=== PATIENT | female | born 1925 | race Caucasian/White ===

== ENCOUNTER 2016-11-25 19:29 | Emergency (ER) | payer MEDICARE ==
[2016-11-25 13:59] LABS: BASOPHILS 0.3 %; BASOPHILS ABSOLUTE 0.02 10/3/uL (0.0-0.16); EOSINOPHILS 0.3 %; EOSINOPHILS ABSOLUTE 0.02 10/3/uL (0.0-0.53); HEMATOCRIT 33.7 % (36.0-48.0); HEMOGLOBIN 11.7 g/dL (12.0-16.0); IMMATURE GRANULOCYTES 0.6 %; IMMATURE GRANULOCYTES ABSOLUTE 0.04 10/3/uL (0.0-0.11); LYMPHOCYTES 9.1 %; LYMPHOCYTES ABSOLUTE 0.61 10/3/uL (0.67-4.30); MEAN CORPUS HGB CONC 34.7 g/dL (32.0-36.0); MEAN CORPUSCULAR HEMOGLOB 28.5 pg (26.0-34.0); MEAN CORPUSCULAR VOLUME 82.2 fL (80-100); MEAN PLATELET VOLUME 8.5 fL (9.2-13.0); MONOCYTES 5.7 %; MONOCYTES ABSOLUTE 0.38 10/3/uL (0.21-1.20); NEUTROPHILS ABSOLUTE 5.62 10/3/uL (2.02-8.40); PLATELET COUNT 202 10/3/uL (150-400); RBC DISTRIBUTION WIDTH 17.1 % (12.0-16.0)
[2016-11-25 14:00] LABS: ER CBC TAT 0 Hrs 05 Mins; MANUAL DIFF NO %; WHITE BLOOD CELLS 6.7 10/3/uL (4.5-10.5)
[2016-11-25 14:14] LABS: ALKALINE PHOSPHATASE 74 U/L (45-117); BUN (BLOOD UREA NITROGEN) 19 MG/DL (6-23); CALCIUM, SERUM 9.1 MG/DL (8.5-10.4); CHLORIDE, SERUM 98 MMOL/L (96-112); CO2 (CARBON DIOXIDE) 35 MMOL/L (24-34); CREATININE 0.61 MG/DL (0.55-1.02); GFR AFRICAN AMERICAN 93 ML/MIN (>=60); GFR NON AFRICAN AMERICAN 80 ML/MIN (>=60); GLOBULIN 3.1 G/DL (2.5-4.1); GLUCOSE, SERUM 107 MG/DL (60-99); POTASSIUM, SERUM 3.4 MMOL/L (3.5-5.3); SGOT(AST) 15 U/L (5-40); SGPT(ALT) 16 U/L (5-65); SODIUM, SERUM 137 MMOL/L (135-148); TOTAL BILIRUBIN 0.5 MG/DL (0-1.2); TOTAL PROTEIN 6.1 G/DL (6.0-8.5)
[2016-11-25 14:18] LABS: ASCORBIC ACID (UR NOT ORDER) NEG (NEG); BILIRUBIN, URINE NEGATIVE (NEG); ER URINALYSIS TAT 0 Hrs 23 Mins; KETONE, URINE NEGATIVE (NEG); LEUKOCYTE ESTERASE(NOT OR NEG (NEG); NITRITE (URINE) NEG (NEG); WBC (NOT ORDERED) (RFLEX) 2 (0-5)
[~2016-11-25 19:29] MED LIST: *UNABLE3; ACET500CAP PO; ALEVE220 MG PO; ALLEGRA180 PO; AMIT50 PO; AMIT75 PO; AT25 PO; CALTRA600D PO; CENTRUM PO; CENTRUM TAB1 TAB PO; CHOLESTYRAMINE PO; CYMBALTA30 PO; DIL2TAB PO; DSS PO; DURICEF PO; FERROUS SULF325 M1 PO; FOSAMAX; FOSAMAX70 MG PO; INDAPAMIDE1.25 MG PO; L20 PO; LIDODERM TOP; LOP25 PO; LOP50 PO; LOZOLTAB PO; MAGOX4 PO; METOPROLOL PO; MOBIC7.5 PO; MUCINEX600 MG PO; MULTIVIT/MIN PO; MULTIVITAMI1 PO; NAP500 PO; NEUR300 PO; NEXIUM40 PO; NITROSTAT0.4 MG SL; PREVALITE4 G1 PO; PRILOSEC40 MG PO; PRIN5 PO; PROTONIX PO; QUESTRAN4 GM PO; REFRES1 OP; REFRESH OPH; SPIRO25 PO; TESSALON200 MG PO; TOPXL25 PO; TRANSSCOP TOP; TRIAMCINOLON0.5 % TOP; [UNRECOGNIZED DRUG - OTHER] TOP
== END 2016-11-25 20:16 | disposition home or self-care (01) ==
LOC: ER 19:29
PROVIDERS: Emergency Medicine
DX: K57.32 Diverticulitis of large intestine without perforation or abscess without bleeding (principal); K59.00 Constipation, unspecified; Z88.5 Allergy status to narcotic agent; Z79.899 Other long term (current) drug therapy
CPT/HCPCS: 74176; 80053; 81001; 83690; 85025; 99284